=== PATIENT | male | born 1960 | race American Indian/Alaskan Native ===

== ENCOUNTER 2020-10-10 11:58 | Inpatient (IN) | payer OTHER ==
[2020-10-10] MEDS ORDERED: ONDANSETRON 4 MG/2 ML INJ IV PRN (12:00)
[2020-10-10] MEDS ORDERED: ACETAMINOPHEN 325 MG TAB PO PRN (12:00)
--- NOTE | 2020-10-10 12:14 | History and Physical Report ---
History of Present Illness Date of examination: 10/10/20 Date of admission: 10/10/20 11:58 History of present illness: Please refer to H&P obtained from the office. Past History Past Medical History: hypertension Social history: denies: smoking Medications and Allergies Home Medications Medication Instructions Recorded Confirmed Last Taken Type amLODIPine [Norvasc] 10 mg PO DAILY 10/10/20 10/10/20 Unknown History hydroCHLOROthiazide 12.5 mg PO QDAY 10/10/20 10/10/20 Unknown History [Hydrochlorothiazide] Active Meds: Active Medications Acetaminophen (Acetaminophen 325 Mg Tab) 650 mg PO Q4H PRN PRN Reason: Pain MILD(1-3)/Fever >100.5/CROCKER Amlodipine Besylate (Amlodipine 10 Mg Tab) 10 mg PO DAILY JIMMY Aspirin (Aspirin Ec 81 Mg Tab) 81 mg PO QDAY JIMMY Atorvastatin Calcium (Atorvastatin 40 Mg Tab) 40 mg PO QHS JIMMY Enoxaparin Sodium (Enoxaparin 30 Mg/0.3 Ml Inj) 30 mg SUB-Q QDAY JIMMY; Protocol Hydrochlorothiazide (Hydrochlorothiazide 12.5 Mg Cap) 12.5 mg PO QDAY JIMMY Metoprolol Tartrate (Metoprolol Tartrate 25 Mg Tab) 12.5 mg PO BID JIMMY Ondansetron HCl (Ondansetron 4 Mg/2 Ml Inj) 4 mg IV Q8H PRN PRN Reason: Nausea And Vomiting Sodium Chloride (Sodium Chloride 0.9% 10 Ml Flush Syringe) 10 ml IV PRN PRN PRN Reason: LINE FLUSH Assessment and Plan Abnormal ECG asymptomatic resting sinus bradycardia, rate 43, with incomplete RBBB. Hypertension A stress test done in our office today showed normal chronotropic response, but markedly abnormal for ischemic features. He exercised for 6 minutes, developed 2-[address] depression and a sustained widecomplex tachcyardia at peak exercise. An echo showed normal ejection fraction 55-60%, no significant valvular lesions. Patient will be admitted to the hospital for further monitoring until a cardiac cath on Tuesday. In addition to home medications, will initiate aspirin, lipitor and low dose metoprolol (due to hx of resting bradycardia).
--- NOTE | 2020-10-10 15:49 | XRay Report ---
CHEST 2 VIEWS INDICATION / CLINICAL INFORMATION: HTN, abnormal ECG. COMPARISON: None available. FINDINGS: SUPPORT DEVICES: None. HEART / MEDIASTINUM: No significant abnormality. LUNGS / PLEURA: No significant pulmonary or pleural abnormality. No pneumothorax. ADDITIONAL FINDINGS: No significant additional findings. IMPRESSION: 1. No acute findings. Signer Name: Juan F Kulkarni MD Signed: 10/10/2020 3:45 PM Workstation Name: [id number]
[2020-10-10 19:28] LABS: Basophils # (Auto) 0.1 K/mm3 (0.0-0.1); Basophils % (Auto) 1.4 % (0.0-1.8); Eosinophils # (Auto) 0.2 K/mm3 (0.0-0.4); Eosinophils % (Auto) 2.9 % (0.0-4.3); Hematocrit 38.8 % (35.5-45.6); Hemoglobin 13.4 gm/dl (11.8-15.2); Lymphocytes # (Auto) 2.3 K/mm3 (1.2-5.4); Lymphocytes % (Auto) 36.5 % (13.4-35.0); Mean Corpuscular HGB Conc 35 % (32-34); Mean Corpuscular Volume 88 fl (84-94); Monocytes # (Auto) 0.5 K/mm3 (0.0-0.8); Monocytes % (Auto) 7.6 % (0.0-7.3); Platelet Count 258 K/mm3 (140-440); Red Cell Distribution Width 13.8 % (13.2-15.2)
[2020-10-10 19:39] LABS: BUN/Creatinine Ratio 11; Blood Urea Nitrogen 12 mg/dL (9-20); Calcium 8.8 mg/dL (8.4-10.2); Hemolysis Index 15; INR 0.91 (0.87-1.13)
[2020-10-10] MEDS: METOPROLOL TARTRATE 25 MG TAB PO SCH (21:23)
[2020-10-11 05:30] LABS: BUN/Creatinine Ratio 13; Blood Urea Nitrogen 13 mg/dL (9-20); Calcium 8.6 mg/dL (8.4-10.2); Hemolysis Index 6
[2020-10-11] MEDS: amLODIPine 10 MG TAB PO SCH (09:16)
[2020-10-11] MEDS: ENOXAPARIN 40 MG/0.4 ML INJ SUB-Q SCH (09:16)
[2020-10-11] MEDS: hydroCHLOROthiazide 12.5 MG CAP PO SCH (09:16)
[2020-10-11] MEDS: ASPIRIN EC 81 MG TAB PO SCH (09:16)
[2020-10-11] MEDS: METOPROLOL TARTRATE 25 MG TAB PO SCH ×2 (09:47→21:34)
[2020-10-11] MEDS ORDERED: ENOXAPARIN 30 MG/0.3 ML INJ SUB-Q SCH (10:00)
--- NOTE | 2020-10-11 11:03 | Progress Note ---
Assessment and Plan 1. Abnormal stress test 2. Essential hypertension Plan. Currently stable patient is scheduled for a left heart cath on Tuesday. Subjective Date of service: 10/11/20 Interval history: No cardiac complains. Objective Vital Signs Temp Pulse Resp BP BP Pulse Ox 10/11/20 09:47 55 L 10/11/20 09:17 98.1 F 55 L 18 116/71 97 10/11/20 09:16 55 L 116/71 10/11/20 04:35 98.0 F 48 L 20 104/64 99 10/11/20 00:09 41 L 10/10/20 23:48 98.0 F 50 L 20 119/70 97 10/10/20 21:23 57 L 134/77 10/10/20 19:46 98.2 F 57 L 18 134/77 98 10/10/20 15:39 98.1 F 62 18 118/72 100 10/10/20 13:30 98.6 F 63 18 119/66 99 - Physical Examination General: Appears Well, No Apparent Distress HEENT: Neck: Cardiac: Lungs: Neuro: Abdomen: /Rectal: Normal Prostate, No Masses Skin: Musculoskeletal: No Fluid Collection, No Pain, Normal Range of Motion Gait: Normal Gait Extremities: - Labs and Meds Coagulation 10/10/20 Range/Units 18:39 PT 12.2 (12.2-14.9) Sec. INR 0.91 (0.87-1.13) CBC 10/10/20 Range/Units 18:39 WBC 6.2 (4.5-11.0) K/mm3 RBC 4.40 (3.65-5.03) M/mm3 Hgb 13.4 (11.8-15.2) gm/dl Hct 38.8 (35.5-45.6) % Plt Count 258 (140-440) K/mm3 Lymph # (Auto) 2.3 (1.2-5.4) K/mm3 [place] # (Auto) 0.5 (0.0-0.8) K/mm3 Eos # (Auto) 0.2 (0.0-0.4) K/mm3 Baso # (Auto) 0.1 (0.0-0.1) K/mm3 Comprehensive Metabolic Panel 10/10/20 10/11/20 Range/Units 18:39 04:27 Sodium 140 142 (137-145) mmol/L Potassium 3.8 3.8 (3.6-5.0) mmol/L Chloride 102.0 104.7 (98-107) mmol/L Carbon Dioxide 28 27 (22-30) mmol/L BUN 12 13 (9-20) mg/dL Creatinine 1.1 1.0 (0.8-1.3) mg/dL Glucose 126 H 93 (75-100) mg/dL Calcium 8.8 8.6 (8.4-10.2) mg/dL
[2020-10-12] MEDS: ASPIRIN EC 81 MG TAB PO SCH (09:20)
[2020-10-12] MEDS: hydroCHLOROthiazide 12.5 MG CAP PO SCH (09:20)
[2020-10-12] MEDS: amLODIPine 10 MG TAB PO SCH (09:20)
[2020-10-12] MEDS: ENOXAPARIN 40 MG/0.4 ML INJ SUB-Q SCH (09:21)
--- NOTE | 2020-10-12 10:44 | Progress Note ---
Assessment and Plan 1. Abnormal stress test 2. Essential hypertension Plan. Currently stable patient is scheduled for a left heart cath in am. Subjective Date of service: 10/12/20 Interval history: No cardiac complains. Objective Vital Signs Temp Pulse Resp BP Pulse Ox 10/12/20 08:51 43 L 10/12/20 07:46 50 L 18 114/67 98 10/12/20 04:08 98.0 F 43 L 18 104/61 98 10/11/20 23:50 98.0 F 46 L 18 112/69 98 10/11/20 19:02 98.2 F 54 L 18 136/71 99 - Physical Examination General: Appears Well, No Apparent Distress HEENT: Neck: Cardiac: Positive: Regular Rate, S1/S2, PMI, Laterally Displaced. Negative: S3, S4 Lungs: Positive: clear to auscultation, No Wheeze, Rales, Rhonchi Neuro: Positive: Grossly Intact Abdomen: Positive: Unremarkable, Soft, Active Bowel Sounds /Rectal: Normal Prostate, No Masses Skin: Musculoskeletal: No Fluid Collection, No Pain, Normal Range of Motion Gait: Normal Gait Extremities: Absent: edema
[2020-10-12] MEDS: METOPROLOL TARTRATE 25 MG TAB PO SCH ×2 (10:45→21:37)
[2020-10-13 06:50] LABS: Basophils % (Auto) 0.7 % (0.0-1.8); Eosinophils # (Auto) 0.2 K/mm3 (0.0-0.4); Eosinophils % (Auto) 3.4 % (0.0-4.3); Hematocrit 37.7 % (35.5-45.6); Hemoglobin 12.6 gm/dl (11.8-15.2); Lymphocytes # (Auto) 2.3 K/mm3 (1.2-5.4); Lymphocytes % (Auto) 41.6 % (13.4-35.0); Mean Corpuscular HGB Conc 33 % (32-34); Mean Corpuscular Volume 88 fl (84-94); Monocytes # (Auto) 0.5 K/mm3 (0.0-0.8); Monocytes % (Auto) 8.2 % (0.0-7.3); Platelet Count 248 K/mm3 (140-440); Red Cell Distribution Width 13.9 % (13.2-15.2)
[2020-10-13 07:06] LABS: BUN/Creatinine Ratio 11
[2020-10-13 07:09] LABS: INR 0.99 (0.87-1.13)
[2020-10-13 08:29] LABS: Blood Urea Nitrogen 13 mg/dL (9-20); Calcium 9.1 mg/dL (8.4-10.2); Hemolysis Index 3
[2020-10-13] MEDS ORDERED: SODIUM CHLORIDE 0.9% 500 ML 500 ML IV SCH (11:00)
[2020-10-13] MEDS ORDERED: HEPARIN/NS 5000 UNIT/500ML 1,000 ML IR ONE (11:18)
[2020-10-13] MEDS ORDERED: VERAPAMIL 5 MG/2 ML INJ ONE (11:19)
[2020-10-13] MEDS ORDERED: fentaNYL 100 MCG/2 ML INJ ONE (11:19)
[2020-10-13] MEDS ORDERED: MIDAZOLAM 2 MG/2 ML INJ ONE (11:19)
[2020-10-13] MEDS ORDERED: LIDOCAINE (2%) 20 MG/1 ML VIAL 20 ML MDV INFILTRATI ONE (11:19)
[2020-10-13] MEDS ORDERED: NITROGLYCERIN SYRINGE 3 ML ONE (11:19)
--- NOTE | 2020-10-13 11:26 | Progress Note ---
Assessment and Plan - Patient Problems (1) Abnormal stress electrocardiogram test Current Visit: Yes Status: Acute Plan to address problem: Cardiac catheterization is planned for further assessment of abnormal stress test. Subjective Date of service: 10/13/20 Interval history: 63-year-old man who was admitted following a markedly abnormal stress test in the outpatient setting. He exercised for 6 minutes of a Danny protocol, with 2 to [address] depression at peak exercise, followed by a short burst of nonsustained ventricular tachycardia. A cardiac catheterization is planned to assess for coronary artery disease. Objective Vital Signs Temp Pulse Resp BP Pulse Ox 10/13/20 08:00 97.8 F 52 L 18 123/65 98 10/13/20 04:03 97.6 F 47 L 16 102/55 99 10/12/20 23:43 98.1 F 54 L 16 131/66 95 10/12/20 22:00 64 10/12/20 21:37 62 132/73 10/12/20 19:18 98.3 F 59 L 16 132/73 96 10/12/20 16:55 98.1 F 50 L 17 122/65 97 10/12/20 12:12 97.1 F L 51 L 18 116/66 98 - Physical Examination General: Appears Well, No Apparent Distress HEENT: Neck: Positive: neck supple Cardiac: Positive: Reg Rate and Rhythm Lungs: Positive: clear to auscultation Neuro: Positive: Grossly Intact Abdomen: Positive: Unremarkable, Soft, Active Bowel Sounds /Rectal: Normal Prostate, No Masses Skin: Musculoskeletal: No Fluid Collection, No Pain, Normal Range of Motion Gait: Normal Gait Extremities: Absent: edema - Labs and Meds Coagulation 10/13/20 Range/Units 06:01 PT 13.0 (12.2-14.9) Sec. INR 0.99 (0.87-1.13) CBC 10/13/20 Range/Units 06:01 WBC 5.6 (4.5-11.0) K/mm3 RBC 4.30 (3.65-5.03) M/mm3 Hgb 12.6 (11.8-15.2) gm/dl Hct 37.7 (35.5-45.6) % Plt Count 248 (140-440) K/mm3 Lymph # (Auto) 2.3 (1.2-5.4) K/mm3 [place] # (Auto) 0.5 (0.0-0.8) K/mm3 Eos # (Auto) 0.2 (0.0-0.4) K/mm3 Baso # (Auto) 0.0 (0.0-0.1) K/mm3 Comprehensive Metabolic Panel 10/13/20 Range/Units 06:01 Sodium 138 (137-145) mmol/L Potassium 4.0 (3.6-5.0) mmol/L Chloride 101.6 (98-107) mmol/L Carbon Dioxide 30 (22-30) mmol/L BUN 13 (9-20) mg/dL Creatinine 1.2 (0.8-1.3) mg/dL Glucose 85 (75-100) mg/dL Calcium 9.1 (8.4-10.2) mg/dL
[2020-10-13] MEDS: HEPARIN 10,000 UNITS/10 ML VIAL ONE ×2 (11:41→11:43)
[2020-10-13] MEDS ORDERED: NITROGLYCERIN 600 MCG/3 ML SYRINGE ART-SHEATH ONE ×2 (11:42→11:43)
[2020-10-13] MEDS ORDERED: traMADol 50 MG TAB PO PRN (12:30)
[2020-10-13] MEDS ORDERED: SODIUM CHLORIDE 0.9% 1000 ML 1,000 ML IV SCH (12:30)
--- NOTE | 2020-10-13 12:35 | Discharge Summary ---
Providers - Providers Date of Admission: 10/10/20 12:41 Date of discharge: 10/13/20 Attending physician: ROXANA FRANK 10/13/20 12:30 Consult to Cardiac Rehabilitation [CONS] Routine Reason For Exam: Cardiac Rehab Evaluation Primary care physician: JAIRO VÁZQUEZ Hospitalization Reason for admission: Abnormal stress test, admitted for further evaluation. Condition: Stable Pertinent studies: Cardiac catheterization performed demonstrated angiographically normal coronary arteries, normal left ventricular systolic function, ejection fraction 55 to 60%. Procedures: Cardiac catheterization. Hospital course: Hospital course was stable. Disposition: DC-01 TO HOME OR SELFCARE Final Discharge Diagnosis (Prints w/discharge instructions): Abnormal cardiac stress test, false positive stress test. - Discharge Diagnoses (1) Abnormal stress electrocardiogram test Status: Acute Comment: Cardiac catheterization demonstrated angiographically normal coronary arteries, normal left ventricular systolic function, ejection fraction 55 to 60%. Core Measure Documentation - Palliative Care Palliative Care/ Comfort Measures: Not Applicable - Core Measures Any of the following diagnoses?: none - VTE Discharge Requirements Deep Vein Thrombosis/Pulmonary Embolism Present on Admission: No Has pt received <5 days of overlap therapy or INR<2.0: No Anticoagulant overlap therapy prescribed at discharge: No Contraindication No Overlap Therapy order at DC: Not Indicated - Acute MS Discharge Requirements Aspirin at discharge: No Reason for no aspirin on DC: Medical contraindication PINO/ARB for LVSD if EF <40%: Not Applicable Beta chandu at discharge: No Reason for no beta chandu on DC: Bradycardia Statin for LDL = or >100 mg/dl on DC: Not Applicable - Heart Failure Discharge Requirements PINO/ARB for LVSD if EF <40%: Not Applicable - Stroke Discharge Requirements Statin for LDL = or >70 mg/dl on DC: Not Applicable Anticoag for atrial fib/atrial flutter: Not Applicable Exam - Constitutional Vitals: Temp Pulse Resp BP Pulse Ox 97.8 F 52 L 18 123/65 98 10/13/20 08:00 10/13/20 08:00 10/13/20 08:00 10/13/20 08:00 10/13/20 08:00 General appearance: Present: no acute distress - EENT Eyes: Present: PERRL ENT: hearing intact - Neck Neck: Present: supple - Respiratory Respiratory effort: normal - Cardiovascular Heart rate: 60 Rhythm: regular Heart Sounds: Present: S1 & S2 - Extremities Extremities: No edema Peripheral Pulses: within normal limits - Abdominal General gastrointestinal: Present: soft Male genitourinary: Present: deferred - Rectal Rectal Exam: deferred - Integumentary Integumentary: Present: clear - Musculoskeletal Musculoskeletal: strength equal bilaterally - Psychiatric Psychiatric: appropriate mood/affect Plan Activity: advance as tolerated Weight Bearing Status: Full Weight Bearing Diet: low fat, low cholesterol, low salt Wound: keep clean and dry Special Instructions: no heavy lifting (3 days) Care Plan Goals: Patient will follow in the office in 5 to 7 days, further medical therapy as indicated. Ultimately, may benefit from very low-dose beta-blockers for the nonsustained tachycardia at peak exercise. Due to his resting sinus bradycardia, we will hold off on beta-blockade at this time until outpatient v isit. Follow up with: JAIRO VÁZQUEZ PA [Primary Care Provider] - 7 Days MACKENZIE FRANK MD [Staff Physician] - 7 Days
[2020-10-13] MEDS: amLODIPine 10 MG TAB PO SCH (13:54)
[2020-10-13] MEDS: ASPIRIN EC 81 MG TAB PO SCH (13:54)
[2020-10-13] MEDS: hydroCHLOROthiazide 12.5 MG CAP PO SCH (13:54)
[2020-10-13] MEDS: METOPROLOL TARTRATE 25 MG TAB PO SCH (13:54)
[2020-10-13] MEDS: ENOXAPARIN 40 MG/0.4 ML INJ SUB-Q SCH (13:55)
--- NOTE | 2020-10-13 14:23 | Cardiac Catherization Report ---
CARDIAC CATHETERIZATION REPORT REASON FOR PROCEDURE: The patient is a 60-year-old man who underwent an outpatient stress test, it was abnormal, with 2-[address] depression at 6 minutes of a Danny protocol. He was referred to undergo cardiac catheterization for further assessment of the abnormal stress test. PROCEDURES: 1. Left heart catheterization. 2. Selective left and right coronary angiography. 3. Left ventricular angiography. 4. Sedation time, start 11:41, end 11:55. I was present for the entire procedure and supervised the moderate sedation protocol. The patient was prepped and draped in a sterile fashion after informed consent. The right radial cath site was prepped and draped after a negative Blaine's test. The right radial artery was entered using the Seldinger technique followed by placement of a 6-N[place] hydrophilic sheath. Routine radial cocktail was administered via the sheath. Selective left and right coronary angiography was performed using a #3.5 left Magui and a #4 right Magui. Pigtail catheter was used for left ventricular angiography. The catheters were removed, sheath removed, and hemostasis achieved using a TR band. The patient was returned to the postprocedure unit in stable condition. There were no complications. FINDINGS: HEMODYNAMICS: Left ventricular end-diastolic pressure was 24, following coronary angiography. Ascending aortic pressure was 121/63. There was no significant pressure gradient on pullback across the aortic valve. CORONARY ANGIOGRAPHY: The left main coronary artery was angiographically normal. The left anterior descending artery was a large vessel that extended around the apex and perfused the inferior wall of the left ventricle. This LAD vessel and its diagonal branches were angiographically normal. The circumflex artery was also a large system, and also extended through the AV groove and terminated in a small left posterior descending branch. The circumflex artery and its obtuse marginal branches were similarly angiographically normal. The right coronary artery was small, nondominant vessel and also angiographically normal. LEFT VENTRICLE: Left ventricular systolic function was within normal limits, ejection fraction 55-60%. CONCLUSION: 1. Angiographically normal coronary arteries. 2. Left coronary system is dominant. 3. Normal left ventricular systolic function, ejection fraction 55-60%. RECOMMENDATION: Risk factor modification and medical therapy. JOB# [id number] CA/NTS
[2020-10-13 20:31] VITALS: BP 149/69
== END 2020-10-13 21:00 | disposition home or self-care (01) | DRG 287 ==
LOC: 4A 11:58 → UNDOADMIN 11:58 → 4A 12:41
PROVIDERS: ADMIT Internal Medicine Cardiovascular Disease; ATTEND Internal Medicine Cardiovascular Disease
PROC: 4A023N7 Measurement of Cardiac Sampling and Pressure, Left Heart, Percutaneous Approach (ICD-10-PCS; principal; 2020-10-13)
PROC: B2151ZZ Fluoroscopy of Left Heart using Low Osmolar Contrast (ICD-10-PCS; 2020-10-13)
PROC: B2111ZZ Fluoroscopy of Multiple Coronary Arteries using Low Osmolar Contrast (ICD-10-PCS; 2020-10-13)
DX: R94.39 Abnormal result of other cardiovascular function study (principal); I10 Essential (primary) hypertension; I45.10 Unspecified right bundle-branch block
CPT/HCPCS: 36415; 71046; 80048; 82962; 85025; 85610; 93458; G0378; A9270-GY; C1894; J1644; J2250; J3010; J7030; Q9967